=== PATIENT | male | born 1950 | race Caucasian/White ===

== ENCOUNTER → 2017-10-28 | Outpatient (CLI) | payer OTHER, BC | LOC: BHFA 09:00 | PROVIDERS: ATTEND Internal Medicine Cardiovascular Disease | DX: I25.10 Atherosclerotic heart disease of native coronary artery without angina pectoris (principal); R94.39 Abnormal result of other cardiovascular function study | CPT/HCPCS: 78452; 93017; A9500 ==

== ENCOUNTER → 2017-11-01 | Outpatient (CLI) | payer OTHER, BC | LOC: BHFA 10:45 | PROVIDERS: ATTEND Internal Medicine Cardiovascular Disease | DX: I25.10 Atherosclerotic heart disease of native coronary artery without angina pectoris (principal); R94.31 Abnormal electrocardiogram [ECG] [EKG] ==

== ENCOUNTER 2018-11-09 16:10 | Emergency (ER) | payer OTHER, BC ==
--- NOTE | 2018-11-09 16:13 | EDPHY ---
HPI/HX/ROS/PE/MDM Narrative: CHIEF COMPLAINT: Back pain HPI: This patient is a 68 year old male with history of hypertension, hyperlipidemia , CAD, chronic back pain. He arrives today from home via EMS following an acute exacerbation of his chronic L4-L5 pain. He has a 45 year history of L4-L5 herniation from weight lifting, which generally presents with low back pain and left-sided sciatica. The patient attended physical therapy earlier today as usual. Later this afternoon, he was standing at his sink and reached behind his back, which precipitated sudden severe low back pain which brought him to the floor, so he called for EMS. This is the worst pain he has ever had in his back. EMS crews administered a total of 300mg IV fentanyl for pain relief, and the patient feels his discomfort is tolerable currently. The patient denies any recent falls or trauma. His last imaging studies were about 5-6 years ago. He denies any extremity weakness or paresthesias. No incontinence of bowels or bladder. No fever, chest pain, abdominal pain, shortness of breath, headache, syncope, or other associated symptoms. REVIEW OF SYSTEMS: A comprehensive 10 system review of systems is otherwise negative aside from elements mentioned in the history of present illness and medical decision making. PMH: Hypertension, hyperlipidemia, chronic back pain from L4-L5 herniation. SOCIAL HISTORY: . Retired. Lives in [place]. PHYSICAL EXAM: General:Patient is alert, in no acute distress. ENT:Eyes are normal to inspection. ENT inspection normal. Neck: Normal inspection. Full range of motion. Respiratory:No respiratory distress. Breath sounds normal bilaterally. Cardiovascular: Regular rate and rhythm. Strong peripheral pulses. Normal cap refill. Abdomen:The abdomen is nontender to palpation. There are no peritoneal signs. There are normal bowel sounds. Back: Normal to inspection. No tenderness to palpation. Skin: Normal color. No rash. Warm and dry. Extremities: Normal appearance. Full range of motion. Neuro: Oriented x3. Normal motor function. Normal sensory function. ED Course: 16:11 Met EMS at bedside. 68 year old male presents with an acute exacerbation of his chronic L4-L5 pain which began suddenly this afternoon. Plan for x-ray of lumbar spine for further evaluation. Lumbar spine x-ray shows multilevel lumbar degenerative changes, no evidence of acute processes. 18:33 Reassessed. Discussed imaging results. The patient currently feels much better and is up and walking. We discussed further evaluation including MRI. The patient declines further imaging or testing at this time. He will follow up with a health care marketing specialist in the outpatient setting. Plan to discharge home in good condition with prescription for Percocet and Medrol Dosepak for symptom relief. Plan to administer 60mg PO Prednisone prior to discharge. Follow up and return precautions discussed. The patient is comfortable with this plan. MDM: This patient presents with signs and symptoms consistent with exacerbation of sciatica. Initial workup with XR of L-spine shows chronic DDD, no other findings. On re-evaluation patient is now ambulatory and feels much better. There are no signs of discitis, cauda equina, ruptured AAA. We discussed MRI and other workup but patient would like to try conservative therapy at home and close follow-up with health care marketing specialist. We discussed strict return precautions. - Data Points Imaging Results: Imaging Impressions Lumbar Spine X-Ray 11/09/18 16:37 Impression:Multilevel lumbar degenerative changes, as above. General Initial Vital Signs: Initial Vital Signs Temperature (C) 37.2 C 11/09/18 16:27 Heart Rate 104 H 11/09/18 16:27 Respiratory Rate 18 11/09/18 16:27 Blood Pressure 170/97 H 11/09/18 16:27 O2 Sat (%) 90 L 11/09/18 16:27 O2 Delivery Mode Room Air Allergies/Adverse Reactions: No Known Allergies Allergy (Unverified 01/20/11 08:05) Home Medications: Medication Instructions Recorded methylPREDNISolone [Medrol Dose 1 each PO AD #1 ea 11/09/18 Joselito] oxyCODONE/APAP 5/325 [Percocet 5 - 10 mg PO Q4-6PRN PRN #15 tab 11/09/18 5/325] Departure - Departure Disposition: Home, Routine, Self-Care Clinical Impression: Back pain at L4-L5 level Condition: Good Instructions: Oxycodone/Acetaminophen (By mouth), Methylprednisolone (By mouth) , Acute Low Back Pain (ED) Additional Instructions: Follow up with a health care marketing specialist within one week. Return to the emergency department for severe pain, fever, numbness, difficulty walking, change in location or nature of pain or other concerns. Take Medrol Dosepak as prescribed. Use ibuprofen and Tylenol as directed. You may take Percocet as prescribed as needed for severe pain.Please note the warnings below and do not take Tylenol with Percocet. Adult Pain & Fever Control: We recommend Acetaminophen (Tylenol) and Ibuprofen (Motrin,Advil) for pain and fever control. When fever is high or pain severe, both drugs can be used at the same time, but at different intervals. Please note the time differences. Your dose is: Acetaminophen 650mg every 4 to 6 hours Ibuprofen 600mg every 6-8 hours with food Note: do not take Acetaminophen with Hydrocodone (Vicodin, Lortab) or Oxycodone (Percocet). These medications also contain Acetaminophen. No more than 3000mg of Acetaminophen should be taken in 24 hours (for an adult). Referrals: Arthur Wasserman MD [Medical Doctor] - As per Instructions Du Hernandez [Outside] - As per Instructions Prescriptions: methylPREDNISolone [Medrol Dose Joselito] 1 each PO AD #1 ea oxyCODONE/APAP 5/325 [Percocet 5/325] 5 - 10 mg PO Q4-6PRN PRN #15 tab PRN Reason: For Pain Report Scribed for: Cesar Wheeler Report Scribed by: Elizabeth Velásquez Date of Report: 11/09/18 Time of Report: 16:11 Physician Review and Approval Statement: Portions of this note were transcribed by an ED scribe. I personally performed the history, physical exam, and medical decision making; and confirm the accuracy of the information in the transcribed note.
[2018-11-09] MEDS ORDERED: predniSONE 20 MG TAB PO ONE (18:33)
[2018-11-09] MEDS ORDERED: OXYCODONE/APAP 5/325MG PREPACK#4 BTL TAKEHOME ONE (18:33)
[2018-11-09 18:54] VITALS: BP 164/92
== END 2018-11-09 19:07 | disposition home or self-care (01) ==
LOC: EDUNIT#
DX: M54.5 Low back pain (principal); G89.29 Other chronic pain; I10 Essential (primary) hypertension; E78.5 Hyperlipidemia, unspecified
CPT/HCPCS: 72100; 99284; J7512

== ENCOUNTER 2019-02-14 20:11 | Emergency (ER) | payer OTHER, BC ==
--- NOTE | 2019-02-14 20:24 | EDPHY ---
H & P Time Seen by Provider: 02/14/19 20:24 HPI/ROS: CHIEF COMPLAINT: Of vertigo and dizziness HISTORY OF PRESENT ILLNESS: 68-year-old man has had a head and chest cold virus for last 10 days. Started with a "racking cough" then moved into his head with a lot of congestion and earache yesterday. Today he felt dizzy which she describes as lightheaded and a little bit of room spinning but, like the room is moving around. He says it is worse when he changes position for example when he was lying down turning to the right side with make it worse but not to the left. He did try Haresh maneuver at home but ended up with "losing my dinner."Has some nausea now. He is able to walk. Is a very mild 1 to 2/10 frontal headache but no neck pain, no visual symptoms, no trouble with speech or motor or sensory. No recent injury or trauma. REVIEW OF SYSTEMS: Eye: no change in vision or double vision ENT: HPI Cardiac: no chest pain or syncope Pulmonary: no cough or SOB Abdomen: No diarrhea or abdominal pain Musculoskeletal: no back pain or neck pain Skin: no rash Neuro: HPI Constitutional: no fever : no urinary symptoms A comprehensive 10 point review of systems is otherwise negative aside from elements mentioned in the history of present illness. PAST MEDICAL HISTORY: Includes hypertension hyperlipidemia. History of coronary disease but no WA or stenting. Social history: Nonsmoker General Appearance: Alert and conversant, cooperative. Eyes: No scleral icterus. Pupils equal reactive extraocular motion intact, slight nystagmus looking to the right. ENT, Mouth: Normal mucous membranes. Normal tympanic membranes bilaterally, no serous otitis. Respiratory: Normal respiratory effort, breath sounds equal, lungs are clear to auscultation. Cardiovascular: Regular rate and rhythm. Gastrointestinal: Abdomen is soft and non tender. Neurological: Alert, face symmetric, normal motor and sensory in extremities. 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 Fluent speech. Able to walk forwards and backwards. Romberg negative. Skin: Warm and dry, no rashes. Musculoskeletal: No peripheral edema. Neck supple. Psychiatric: Not agitated. Emergency Department course/MDM: Patient has more likely peripheral vertigo, it is positional and provoked, will extinguish with being still, has a normal neurologic examination. He does have a recent head cold. I think it is unlikely he has intracranial mass or bleed, cerebellar stroke, vascular dissection. Discussed symptomatic treatment with Zofran and meclizine, patient is in agreement. I think it is unlikely he has a cardiac source for his problems. He does not have palpitations chest pain shortness of breath syncope or near syncope. Smoking Status: Never smoked Constitutional: Initial Vital Signs Temperature (C) 36.9 C 02/14/19 20:12 Heart Rate 66 02/14/19 20:12 Respiratory Rate 16 02/14/19 20:12 Blood Pressure 189/100 H 02/14/19 20:12 O2 Sat (%) 93 02/14/19 20:12 O2 Delivery Mode Room Air Allergies/Adverse Reactions: No Known Allergies Allergy (Verified 02/14/19 20:15) Home Medications: Medication Instructions Recorded Acyclovir 02/14/19 Aspirin 02/14/19 Atorvastatin Calcium 02/14/19 Glucosamine 02/14/19 Losartan Potassium 02/14/19 Meclizine HCl [Meclizine HCl 25 mg 25 mg PO Q6 PRN #20 tab 02/14/19 (RX,OTC)] Lowber-3 02/14/19 Ondansetron Odt [Zofran Odt] 4 mg PO Q4PRN #6 tab 02/14/19 Pioglitazone HCl 02/14/19 Sildenafil Citrate 02/14/19 Tylenol 02/14/19 Medical Decision Making - Data Points Medications Given: Discontinued Medications Meclizine HCl (Meclizine Hcl) 25 mg PO EDNOW ONE Stop: 02/14/19 20:45 Last Admin: 02/14/19 20:47 Dose: 25 mg Ondansetron HCl (Zofran Odt) 4 mg PO EDNOW ONE Stop: 02/14/19 20:45 Last Admin: 02/14/19 20:47 Dose: 4 mg Departure - Departure Disposition: Home, Routine, Self-Care Clinical Impression: Vertigo Condition: Good Instructions: Vertigo (ED) Referrals: Lars Gonzalez MD [Primary Care Provider] - 3-4 days, if not improved Prescriptions: Meclizine HCl [Meclizine HCl 25 mg (RX,OTC)] 25 mg PO Q6 PRN #20 tab PRN Reason: Dizziness Ondansetron Odt [Zofran Odt] 4 mg PO Q4PRN #6 tab
[2019-02-14] MEDS ORDERED: MECLIZINE HCL 25 MG TAB ONE (20:43)
[2019-02-14] MEDS ORDERED: MECLIZINE HCL 25 MG TAB PO ONE (20:44)
[2019-02-14] MEDS ORDERED: ONDANSETRON DISINTEGRATING 4 MG TAB PO ONE (20:44)
[2019-02-14] MEDS ORDERED: ONDANSETRON DISINTEGRATING 4 MG TAB ONE (20:44)
[2019-02-14 21:07] VITALS: BP 152/87
== END 2019-02-14 21:07 | disposition home or self-care (01) ==
DX: R42 Dizziness and giddiness (principal); I10 Essential (primary) hypertension; E78.5 Hyperlipidemia, unspecified; Z86.79 Personal history of other diseases of the circulatory system